=== PATIENT | male | born 1980 | race Caucasian/White ===

== ENCOUNTER 2017-05-04 15:06 | Emergency (ER) | payer OTHER ==
[~2017-05-04 15:06] MED LIST: ALBUTEROL17 GM INH; ANTIVERT PO; BACTRIM DS TABL1 TA1 PO; DOXYCYCLINE MO100 MG PO; FIORICET 50-321 EACH PO; FLEXERIL10 MG; FLONASE16 GM; NAPROSYN500 MG PO; NO MEDICATIONS; ZITHROMAX1 G/PKT PO
== END 2017-05-04 16:11 | disposition home or self-care (01) ==
LOC: SED 15:06
DX: S29.012A Strain of muscle and tendon of back wall of thorax, initial encounter (principal); F17.210 Nicotine dependence, cigarettes, uncomplicated; X50.0XXA Overexertion from strenuous movement or load, initial encounter
CPT/HCPCS: 99283